=== PATIENT | female | born 1945 | race Caucasian/White ===

== ENCOUNTER 2019-07-11 01:41 | Observation (INO) | payer OTHER ==
--- NOTE | 2019-07-11 02:22 | PDOC ---
History of Present Illness - General Chief Complaint: Injury Stated Complaint: FALL Time Seen by Provider: 07/11/19 01:52 History Source: Patient Exam Limitations: No Limitations - History of Present Illness Initial Comments: 07/11/19 02:22 Lorna Crowe is a 74F with PMG NIDDM on Janumet and HTN on Losartan presenting with syncope and fall. Patient awoke at 4AM with a cramping sensation in her groin, stood up to relieve the pain, then felt weak, lost consciousness, and fell forwards. Patient later woke up when daughter heard a fall, had struck her head against a dresser. Patient does not remember event, last recollection is standing up. Earlier today denies any symptoms, says she felt well, had a good dinner. Denies fever/chills, N/V/C/D, dizziness, chest pain, SOB, palpitations, abd pain. Has pain on her forehead but denies pain to rest of body. Says she has tingling in her hands, but not down her arms or legs. Able to ambulate. Continues to have groin cramping in ED. No history of MD or CVA, no cardiac disease. Has been taking HTN meds daily for years without syncope. Past History - Past Medical History Allergies/Adverse Reactions: Allergies Allergy/AdvReac Type Severity Reaction Status Date / Time shellfish derived AdvReac Verified 07/11/19 02:14 Home Medications: Ambulatory Orders Glipizide [Glucotrol Xl] 5 mg PO DAILY 07/11/19 Losartan Potassium [Cozaar] 100 mg PO DAILY 07/11/19 Nebivolol HCl [Bystolic] 5 mg PO DAILY 07/11/19 Sitagliptin Phos/Metformin HCl [Janumet 50-1,000 mg Tablet] 1 each PO BID COPD: No - Psycho Social/Smoking Cessation Hx Smoking History: Never smoked Have you smoked in the past 12 months: No Information on smoking cessation initiated: No Hx Alcohol Use: No Drug/Substance Use Hx: No Review of Systems - Review of Systems Able to Perform ROS?: Yes Constitutional: No: Symptoms Reported HEENTM: Yes: Eye Pain Respiratory: No: Symptoms reported Cardiac (ROS): Yes: Lightheadedness ABD/GI: No: Symptoms Reported : No: Symptoms Reported Musculoskeletal: No: Symptoms Reported Integumentary: No: Symptoms Reported Neurological: Yes: Headache, Numbness, Tremors Endocrine: No: Symptoms Reported Hematologic/Lymphatic: No: Symptoms Reported All Other Systems: Reviewed and Negative *Physical Exam - Vital Signs Last Vital Signs Temp Pulse Resp BP Pulse Ox 98.3 F 97 H 18 176/81 H 100 07/11/19 02:00 07/11/19 02:00 07/11/19 02:00 07/11/19 02:00 07/11/19 02:00 - Physical Exam General Appearance: Yes: Nourished, Appropriately Dressed, Obese. No: Apparent Distress HEENT: positive: EOMI, ADRY, Normal Voice, Symmetrical, Pharynx Normal, Hearing Grossly Normal, Other (no facial bone deformities, vision intact, pupils reactive, no skull deformities). negative: Normal ENT Inspection (swelling and hematoma to R eye with L eyelid swollen over globe, no active bleeding or lacerations requiring repair), Scleral Icterus (R), Scleral Icterus (L), Pharyngeal Erythema, Tonsillar Exudate, Tonsillar Erythema Neck: positive: Trachea midline, Supple. negative: Tender, Lymphadenopathy (R) , Lymphadenopathy (L) Respiratory/Chest: positive: Lungs Clear, Normal Breath Sounds. negative: Chest Tender, Respiratory Distress, Accessory Muscle Use, Crackles, Rales, Rhonchi, Stridor, Wheezing Cardiovascular: positive: Regular Rhythm, Regular Rate Gastrointestinal/Abdominal: positive: Normal Bowel Sounds, Flat, Soft. negative : Tender Musculoskeletal: positive: Normal Inspection. negative: CVA Tenderness, Decreased Range of Motion, Vertebral Tenderness Extremity: positive: Normal Capillary Refill, Normal Inspection, Normal Range of Motion, Pelvis Stable, Other (no evidence of tenderness, bruising, or deformities to limgs). negative: Tender, Pedal Edema, Swelling, Calf Tenderness Neurologic: positive: sealer aircraft II-XII NML intact, Fully Oriented, Alert, Normal Mood/ Affect, Normal Response, Motor Strength 12/02 ED Treatment Course - LABORATORY CBC & Chemistry Diagram: 07/11/19 03:15 07/11/19 03:15 Medical Decision Making - Medical Decision Making 07/11/19 02:22 Lorna Crowe is a 74F with PMG NIDDM on Janumet and HTN on Losartan presenting with syncope and fall. Patient presents with syncope and fall but has no significant cardiac history. Likely vagal episode from standing too quickly, however will evaluate for cardiac causes including MD, arrhythmia, PE. Unlikely to be neurological, patient was not post-ictal, no hx seizures, no alcohol/drug use reported. Plan to admit for cardiac syncope for tele/obs. CMP CBC CP Mag/Phos BNP ECG CXR CT head/c-spine/facial bones 07/11/19 04:50 CT c-spine shows no fracture. CT head shows no acute IC pathology but has scalp edema CT facial bones show non-depressed nasal fracture that is old per patient/chart ECG shows NSR with HR 95, QRS 70, QTc 454, no TWI or ischemic changes. 07/11/19 06:[address] Longoria, admit to tele/obs for syncope evaluation, consult with Dr. Newman. Discharge - Discharge Information Problems reviewed: Yes Clinical Impression/Diagnosis: Syncope and collapse Condition: Stable - Admission Yes - Follow up/Referral - Patient Discharge Instructions - Post Discharge Activity
--- NOTE | 2019-07-11 02:28 | PDOC ---
Attending Attestation - Resident Resident Name: Jeronimo Pederson - ED Attending Attestation I have performed the following: I have examined & evaluated the patient, The case was reviewed & discussed with the resident, I agree w/resident's findings & plan - HPI HPI: 07/11/19 03:00 see resident hpi - Physicial Exam PE: 07/11/19 03:00 agree with resident exam - Medical Decision Making 07/11/19 03:00 74-year-old female status post syncopal episode with fall sustaining injury to the left periorbital area Plan for CT scans of the head facial bones and cervical spine as well as syncope evaluation Admission to medical service for further evaluation pending results
[2019-07-11] MEDS ORDERED: SODIUM CHLORIDE 0.9% 500 ML INFUS.BAG IV ONE (02:40)
[2019-07-11] MEDS ORDERED: ACETAMINOPHEN 1000 MG/100 ML VIAL (NON FORMULARY) IVPB ONE (02:40)
[2019-07-11] MEDS ORDERED: ACETAMINOPHEN INJECTION 100 ML IVPB ONE (03:05)
[2019-07-11 03:06] VITALS: BMI 41.9
[2019-07-11 03:39] LABS: BASO % 0.6 % (0-2.0); EOS % 0.7 % (0-4.5); HEMATOCRIT 34.7 % (32.4-45.2); HEMOGLOBIN 11.7 GM/dL (10.7-15.3); LYMPH % 9.3 % (8-40); MCH 30.1 pg (25.7-33.7); MCHC 33.7 g/dl (32.0-36.0); MEAN CELL VOLUME 89.4 fl (80-96); MEAN PLT VOLUME 7.9 fl (7.5-11.1); MONO % 5.6 % (3.8-10.2); NEUT % 83.8 % (42.8-82.8); PLATELET COUNT 252 K/MM3 (134-434); RBC 3.88 M/mm3 (3.60-5.2); RDW 13.1 % (11.6-15.6); WHITE BLOOD COUNT 11.5 K/mm3 (4.0-10.0)
[2019-07-11 04:08] LABS: ALBUMIN 3.6 g/dl (3.4-5.0); ALK PHOS 89 U/L (45-117); ANION GAP 9 MMOL/L (8-16); BILIRUBIN,TOTAL 0.5 mg/dL (0.2-1); BLOOD UREA NITROGEN 23.1 mg/dL (7-18); CALCIUM 9.3 mg/dL (8.5-10.1); CHLORIDE 109 mmol/L (98-107); CO2 23 mmol/L (21-32); CREATININE 1.1 mg/dL (0.55-1.3); GLUCOSE,RANDOM 173 mg/dL (74-106); MAGNESIUM 1.5 mg/dL (1.8-2.4); POTASSIUM 4.6 mmol/L (3.5-5.1); SGOT/AST 13 U/L (15-37); SGPT/ALT 22 U/L (13-61); SODIUM 142 mmol/L (136-145); TOT PROT 7.3 g/dl (6.4-8.2)
--- NOTE | 2019-07-11 10:25 | HP ---
DATE OF ADMISSION: 07/11/2019 This is a 74-year-old female well known to me. Early this morning, she had a cramping pain on her groin, stood up to relieve the pain, then got weak, and fell. There is question of loss of consciousness. She hit her left side of the face to the door. In the ER, she was awake, alert, and oriented, not in any other distress other than the pain from the fall. CAT scan of the head, C-spine, facial bones: No fracture. Patient is also diabetic and hypertensive on medications. No history of fever, [place]. FAMILY HISTORY: Nothing significant. Mother lived long. Father also lived long. Her recently . She has grown-up children. PHYSICAL EXAMINATION: Vital Signs: BP 140/50; pulse regular, 94; temperature 98. General: Awake, alert, oriented, not in any distress. Head: Trauma on the left side of periorbital area and the eye. Neck: Supple. No JVD. Lungs: Clear. Heart: S1, S2 normal. No S3 or S4. Abdomen: Soft. Neurologic: Examination grossly normal. Musculoskeletal: Range of motion of hip and other joints are normal. LABORATORY REPORTS: WBC 11, hemoglobin 11.7, hematocrit 34. Chemistry: Sodium 142, potassium 4.6, BUN 23, creatinine 1.1, blood sugar 173. B peptide 85. Troponin negative. Chest x-ray negative. X-ray of the C spine, facial bones, head CT are negative. IMPRESSION: Syncope, fall. Head injury ruled out. PLAN: Neurology consult by Dr. Goldberg. Cardiology consult by Dr. Chilel. Will follow. Kasia [id number]
--- NOTE | 2019-07-11 11:55 | CONS ---
DATE OF CONSULTATION: DATE OF DICTATION: 07/11/2019 CARDIOLOGY CONSULTATION REQUESTED BY: Lazaro Gresham MD CHIEF COMPLAINT: 1. History of severe pain involving the right groin. 2. Dizziness. 3. Loss of consciousness. HISTORY OF PRESENT ILLNESS: Patient is a 74-year-old white female with longstanding history of hypertension, noninsulin-dependent diabetes mellitus. Patient states that she was woken up in the early hours of the morning with severe pain involving the right groin described as "cramps." Patient got up to relieve the pain, went back to bed and the pain recurred. The 2nd time when she got up she became lightheaded and then found herself on the floor. She was complaining of pain involving the left forehead. Her daughter had heard her fall and by the time she got there patient was awake. There is no history of seizures, tongue biting or loss of sphincter control. There is no history of palpitations. There is no history of chest pain or discomfort either at rest or with exertion, no exertional dyspnea, paroxysmal nocturnal dyspnea or orthopnea. She denies having a heart murmur. PAST HISTORY: 1. As mentioned in the history of present illness. 2. History of osteoarthritis of the knees. SURGICAL HISTORY: 1. section x1. 2. Status post tonsillectomy. 3. History of removal of uterine fibroid without undergoing hysterectomy. 4. Status post colonoscopy. SOCIAL HISTORY: Patient is a . 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 Has 4 children, 2 sons and 2 daughters. The youngest son had acute lymphocytic leukemia at the age of 5 and has been cured. She stopped smoking 40 years ago and states she only smoked socially. No history of alcohol or drug use. FAMILY HISTORY: 1. Father had coronary artery disease and of a myocardial infarction at age 78. He was also diabetic. 2. Mother had hypertension and coronary artery disease and of a myocardial infarction at age 83. 3. She had 1 brother who was born mentally challenged and at age 21. ALLERGIES: SHELLFISH. MEDICATIONS: Prior to hospitalization she was on the following medications:1. Losartan 100 mg p.o. daily. 2. Bystolic 5 mg p.o. daily at night. 3. Glipizide 5 mg a.c. breakfast. 4. Janumet one p.o. b.i.d. a.c. REVIEW OF SYSTEMS: Constitutional: No history of chills, fever or night sweats. No history of unintentional weight loss.HEENT: History of left frontal headache and inability to open her left eye due to swelling of the eyelid. There is no diplopia or loss of vision reported. There is no history of epistaxis or hoarseness, no history of tinnitus or deafness. Respiratory: No history of cough, expectoration or hemoptysis. No history of tuberculosis. Cardiovascular: No history of chest pain or discomfort, no history of palpitations, no history of heart murmur. Gastrointestinal: No history of nausea, vomiting, melena or hematemesis. No history of abdominal pain or discomfort. No history of change in bowel habits. Neurological: See history of present illness. Endocrine: See history of present illness. No history of polyuria or polydipsia. Denies intolerance to cold or warm weather. Genitourinary: No history of dysuria. Hematological: History of ecchymosis, contusion and swelling of the left eyelid related to a hematoma (traumatic). Miscellaneous: History of paresthesias involving both hands (chronic). LABORATORY DATA: ECG, July 11, 2019, 4:57 a.m.: Sinus rhythm, suboptimal tracing, baseline artifacts are recorded. There are Q waves in II, III, aVF, the possibility of an inferior wall myocardial infarction of indeterminate age. RSR prime in V1 consistent with incomplete right bundle branch block. Nonspecific ST and T-wave abnormalities involving the anterior leads. There is no previous ECG available for comparison. CBC: WBC 11,500. Hemoglobin 11.7 g/dL. Normal cell indices. Platelet count 252,000. Differential: Elevated neutrophils 83.8%. The remainder of differential is normal. Chemistry: Sodium 142, potassium 4.6, chloride 109, CO2 is 23 mMol/L. BUN 23.1 mg/dL. Creatinine 1.1 mg/dL. Random glucose was 173 mg/dL. Calcium 9.3 mg/dL. Magnesium was 1.5. Phosphorus 3.0. Total bilirubin 0.5. AST 13, ALT 22 units/L. Alkaline phosphatase 89 units/L. CK 158. Troponin was less than 0.02. BNP was 85 pg/mL. X-ray, chest. Impression: No evidence of active pulmonary disease. CT of the head without contrast. Impression: 1. No evidence of acute intracranial hemorrhage, edema, midline shift, mass effect or skull fracture. 2. No CT evidence of acute. 3. Left preseptal/septal soft tissue swelling. IMPRESSION: 1. Clinical presentation consistent with syncope. Etiology: a. Vasovagal. b. Arrhythmias need exclusion. 2. Hypomagnesemia. 3. Hypertension, currently normotensive. 4. Noninsulin-dependent diabetes mellitus. 5. Exogenous obesity. 6. Contusion involving the left forehead and left upper eyelid associated with hematoma. 7. Inferior wall myocardial infarction of indeterminate age cannot be excluded. RECOMMENDATIONS: 1. Followup ECG and enzymes. 2. Check blood pressure supine and standing. 3. Echocardiogram for evaluation of LV wall motion. 4. Correction of hypomagnesemia. 5. Would suggest followup CT scan prior to discharge. 6. Lipid profile and consider statins in the presence of diabetes mellitus. Thank you for your referral. Yours sincerely, Kasia [id number] cc: Chris Chilel MD
[2019-07-11] MEDS ORDERED: ACETAMINOPHEN 325 MG TABLET (FP) ONE (14:37)
--- NOTE | 2019-07-11 14:39 | EKG ---
Test Reason : Blood Pressure : / mmHG Vent. Rate : 095 BPM Atrial Rate : 095 BPM P-R Int : 202 ms QRS Dur : 070 ms QT Int : 362 ms P-R-T Axes : 105 028 008 degrees QTc Int : 454 ms POOR DATA QUALITY, INTERPRETATION MAY BE ADVERSELY AFFECTED NORMAL SINUS RHYTHM POSSIBLE INFERIOR INFARCT (CITED ON OR BEFORE 03-FEB-2003) ABNORMAL ECG WHEN COMPARED WITH ECG OF 16-JAN-2009 13:26, NO SIGNIFICANT CHANGE WAS FOUND Confirmed by MARCIAL COTTON MD ([id number]) on 07/11/2019 2:39:20 PM Referred By: Confirmed By:MARCIAL COTTON MD
[2019-07-11] MEDS: ACETAMINOPHEN 325 MG TABLET (FP) PO ONE (14:43)
[2019-07-11] MEDS ORDERED: PNEUMOC 13-VAL CONJ-DIP CRM/PF 0.5 ML DISP.SYRIN IM ONE (19:06)
[2019-07-12 06:55] VITALS: TEMP 98.6
[2019-07-12] MEDS ORDERED: ACETAMINOPHEN 325 MG TABLET (FP) ONE (09:51)
--- NOTE | 2019-07-12 09:57 | DS ---
Physical Examination Vital Signs: Vital Signs Temperature 98.6 F 07/12/19 06:00 Pulse Rate 76 07/12/19 06:00 Respiratory Rate 20 07/12/19 06:00 Blood Pressure 137/86 07/12/19 06:00 O2 Sat by Pulse Oximetry (%) 98 07/11/19 21:00 Findings/Remarks: Admitted after sycope and fall Doing OK Cardiology consult of Dr sheik carolina Constitutional: Yes: No Distress Eyes: Yes: WNL HENT: Yes: WNL Neck: Yes: WNL Cardiovascular: Yes: WNL Respiratory: Yes: WNL Gastrointestinal: Yes: Normal Bowel Sounds Renal/: Yes: WNL Edema: No Wound/Incision: Yes: Other (Hemtoma left eye area OK) Neurological: Yes: Alert Labs: CBC, BMP 07/11/19 03:15 07/11/19 03:15 Discharge Summary Problems reviewed: Yes Reason For Visit: SYNCOPE AND COLLAPSE Current Active Problems Syncope and collapse (Acute) Condition: Stable - Instructions Referrals: Lazaro Gresham MD [Primary Care Provider] - - Home Medications Comprehensive Discharge Medication List: Ambulatory Orders Glipizide [Glucotrol Xl] 5 mg PO DAILY 07/11/19 Losartan Potassium [Cozaar] 100 mg PO DAILY 07/11/19 Nebivolol HCl [Bystolic] 5 mg PO DAILY 07/11/19 Sitagliptin Phos/Metformin HCl [Janumet 50-1,000 mg Tablet] 1 each PO BID
[2019-07-12] MEDS ORDERED: MAGNESIUM CL 64 MG TABLET.SA PO SCH (10:00)
[2019-07-12] MEDS ORDERED: PT OWN MED DRAWER 7, Y5N ONE (10:51)
--- NOTE | 2019-07-12 11:10 | CON.NEURO ---
Consult Consult Specialty:: carla Referred by:: reji - History of Present Illness History of Present Illness: 74-year-old right handed female patient with multiple medical problems including history of osteoarthritis, coronary artery disease, diabetes who was at the usual of health status until yesterday unfortunately she fell at home questionable circumstances of exactly what happened patients daughter did not see the actual full but she was able to attend to her mother right away. No reports of any seizure like activity in a report of any chest pain patient came into the emergency room at [facility]. Cat head view no evidence of acute [employer] pathology. Patient is currently not an aspirin. Patient was found hemodynamically stable. Patient was noted with low magnesium level. - History Source History Provided By: Patient, Family Member, Medical Record - Alcohol/Substance Use Hx Alcohol Use: No - Smoking History Smoking history: Never smoked Have you smoked in the past 12 months: No Home Medications - Allergies Allergies/Adverse Reactions: Allergies Allergy/AdvReac Type Severity Reaction Status Date / Time shellfish derived AdvReac Verified 07/11/19 02:14 - Home Medications Home Medications: Ambulatory Orders Glipizide [Glucotrol Xl] 5 mg PO DAILY 07/11/19 Losartan Potassium [Cozaar] 100 mg PO DAILY 07/11/19 Nebivolol HCl [Bystolic] 5 mg PO DAILY 07/11/19 Sitagliptin Phos/Metformin HCl [Janumet 50-1,000 mg Tablet] 1 each PO BID Family Medical History Family History: Unremarkable Family Hx Cancer: Grandmother (maternal) Family Hx Cardiac Disorders: Grandmother (maternal) Review of Systems - Review of Systems Constitutional: reports: No Symptoms Eyes: reports: No Symptoms Musculoskeletal: reports: Back Pain, Joint Pain Neurological: reports: Headache Physical Exam-Neuro Vital Signs: Vital Signs Temperature 98.6 F 07/12/19 06:00 Pulse Rate 76 07/12/19 06:00 Respiratory Rate 20 07/12/19 06:00 Blood Pressure 137/86 07/12/19 06:00 O2 Sat by Pulse Oximetry (%) 98 07/11/19 21:00 Constitutional: Yes: Well Nourished Neck: Yes: WNL Labs: CBC, BMP 07/11/19 03:15 07/11/19 03:15 - Neuro Exam Level Of Consciousness: Yes: Oriented to Person, Oriented to Place Eyes: Yes: PERRLA Speech: WNL Dominant Hand: Right Cranial Nerves II-XII Intact: Yes Gag: Present DTR's: 0 Left Tricep, 1+ Left Bicep, 1+ Right Bicep, 1+ Right Tricep, 1+ Left Brachioradialis Babinski: Absent Response to light touch: Abnormal Motor Strength: 3/5: Left Arm, Right Arm, Left Leg, Right Leg Gait: Deferred Imaging - Results Cat Scan: Image Reviewed Problem List - Problems (1) Syncope and collapse Assessment/Plan: 74-year-old woman with history of diabetes status post questionable [place] syncope nation with evidence of mild neuropathy with no evidence of acute [employer] pathology. Syncope associated be associated with TIA c duplex orthostatic checks baby asa lipitor 20 fall precautions many thanks Shelly Goldberg Code(s): R55 - SYNCOPE AND COLLAPSE
[2019-07-12] MEDS: ACETAMINOPHEN 325 MG TABLET (FP) PO ONE (11:11)
[2019-07-12 14:08] VITALS: BP 139/86; PULSE 72
== END 2019-07-12 13:30 | disposition home or self-care (01) ==
LOC: JER 01:41 → JERBED 05:00 → J4W 16:52
PROVIDERS: ADMIT Internal Medicine; ATTEND Internal Medicine
PROC: 3E033NZ Introduction of Analgesics, Hypnotics, Sedatives into Peripheral Vein, Percutaneous Approach (ICD-10-PCS; principal; 2019-07-11)
PROC: 3E0337Z Introduction of Electrolytic and Water Balance Substance into Peripheral Vein, Percutaneous Approach (ICD-10-PCS; 2019-07-11)
PROC: 3E0234Z Introduction of Serum, Toxoid and Vaccine into Muscle, Percutaneous Approach (ICD-10-PCS; 2019-07-11)
DX: R55 Syncope and collapse (principal); S00.83XA Contusion of other part of head, initial encounter; S00.12XA Contusion of left eyelid and periocular area, initial encounter; E11.9 Type 2 diabetes mellitus without complications; I10 Essential (primary) hypertension; E83.42 Hypomagnesemia; E66.9 Obesity, unspecified; Z68.41 Body mass index [BMI] 40.0-44.9, adult; Z79.84 Long term (current) use of oral hypoglycemic drugs; Z91.013 Allergy to seafood; W18.39XA Other fall on same level, initial encounter; Y93.89 Activity, other specified; Y92.89 Other specified places as the place of occurrence of the external cause
CPT/HCPCS: 36415; 70450-TC; 70486-TC; 71045-TC-FY; 72125-TC; 80053; 82550; 82553; 83735; 83880; 84100; 84484; 85025; 90471; 90670; 93005; 93010; 96374; 99285-25; G0378; J0131

== ENCOUNTER 2020-07-08 09:28 | Inpatient (IN) | payer OTHER, MEDICARE ==
[2020-07-08] MEDS ORDERED: ACETAMINOPHEN 1000 MG/100 ML VIAL (NON FORMULARY) IVPB ONE ×2 (09:51→15:23)
[2020-07-08] MEDS ORDERED: ACETAMINOPHEN INJECTION 100 ML IVPB ONE ×2 (10:09→15:33)
[2020-07-08 10:22] LABS: BASO % 0.4 % (0-2.0); EOS % 0.7 % (0-4.5); HEMATOCRIT 32.7 % (32.4-45.2); HEMOGLOBIN 10.9 GM/dL (10.7-15.3); LYMPH % 8.5 % (8-40); MCH 30.4 pg (25.7-33.7); MCHC 33.3 g/dl (32.0-36.0); MEAN CELL VOLUME 91.2 fl (80-96); MEAN PLT VOLUME 7.7 fl (7.5-11.1); MONO % 4.9 % (3.8-10.2); NEUT % 85.5 % (42.8-82.8); PLATELET COUNT 247 K/MM3 (134-434); RBC 3.59 M/mm3 (3.60-5.2); RDW 13.2 % (11.6-15.6); WHITE BLOOD COUNT 10.9 K/mm3 (4.0-10.0)
[2020-07-08 10:28] LABS: PROTHROMBIN TIME (PATIENT) 12.3 SEC (9.7-13.0)
[2020-07-08 10:31] LABS: ACTIVATED PTT 23.9 SECONDS (25.2-36.5)
[2020-07-08 10:43] LABS: POTASSIUM 4.8 mmol/L (3.5-5.1)
[2020-07-08 10:45] LABS: ALBUMIN 3.4 g/dl (3.4-5.0); CALCIUM 8.8 mg/dL (8.5-10.1)
[2020-07-08 10:46] LABS: BLOOD UREA NITROGEN 21.6 mg/dL (7-18)
[2020-07-08 10:49] LABS: CREATININE 1.2 mg/dL (0.55-1.3)
[2020-07-08 10:50] LABS: BILIRUBIN,TOTAL 0.6 mg/dL (0.2-1); TOT PROT 6.7 g/dl (6.4-8.2)
[2020-07-08] MEDS ORDERED: morphine SULFATE 4 MG/ML VIAL ONE (15:01)
[2020-07-08] MEDS: morphine CARPU-JECT 4 MG/1 ML DISP.SYRIN IVPUSH ONE ×2 (15:04→15:09)
[2020-07-08] MEDS ORDERED: MEPERIDINE HCL 25 MG/ML VIAL IM PRN (18:17)
[2020-07-08 21:02] VITALS: BMI 37.4
[2020-07-09] MEDS ORDERED: ACETAMINOPHEN 1000 MG/100 ML VIAL (NON FORMULARY) IVPB ONE (00:01)
[2020-07-09] MEDS ORDERED: amLODIPine BESYLATE 5 MG TABLET (FP) PO ONE (09:34)
[2020-07-09] MEDS ORDERED: PROPOFOL 20 ML ONE ×2 (11:18→12:28)
[2020-07-09] MEDS ORDERED: MIDAZOLAM HCL 2 MG/2 ML SINGLE DOSE VIAL ONE (11:19)
[2020-07-09] MEDS ORDERED: ACETAMINOPHEN 1000 MG/100 ML VIAL (NON FORMULARY) IVPB PRN ×2 (11:22→13:33)
[2020-07-09] MEDS ORDERED: LACTATED RINGERS SOLUTION 1,000 ML IV SCH (11:30)
[2020-07-09] MEDS ORDERED: ceFAZolin SODIUM 1 GM VIAL IVPB ONE (11:55)
[2020-07-09] MEDS ORDERED: ONDANSETRON 4 MG/2 ML VIAL IVPUSH PRN (13:20)
[2020-07-09] MEDS ORDERED: MEPERIDINE HCL 25 MG/ML VIAL IM PRN (13:33)
[2020-07-09] MEDS ORDERED: MEPERIDINE HCL 25 MG/ML VIAL ONE (13:41)
[2020-07-09] MEDS ORDERED: MEPERIDINE HCL 25 MG/ML VIAL IVPUSH ONE ×2 (13:45→15:11)
[2020-07-09] MEDS: oxyCODONE HCL 5 MG TABLET PO PRN ×2 (17:38→22:06)
[2020-07-09] MEDS: LACTATED RINGERS SOLUTION 1,000 ML IV SCH (17:46)
[2020-07-09] MEDS: CEFAZOLIN 2 GM/D5W 2 GM/50 ML ML IVPB SCH (18:30)
[2020-07-09] MEDS ORDERED: CEFAZOLIN 2 GM/D5W 2 GM/50 ML ML IVPB SCH (19:00)
[2020-07-10] MEDS: LACTATED RINGERS SOLUTION 1,000 ML IV SCH ×2 (00:09→15:39)
[2020-07-10] MEDS: CEFAZOLIN 2 GM/D5W 2 GM/50 ML ML IVPB SCH ×2 (03:24→11:25)
[2020-07-10 09:37] LABS: HEMATOCRIT 29.8 % (32.4-45.2); HEMOGLOBIN 9.9 GM/dL (10.7-15.3); MCH 30.2 pg (25.7-33.7); MCHC 33.2 g/dl (32.0-36.0); MEAN PLT VOLUME 7.8 fl (7.5-11.1); PLATELET COUNT 200 K/MM3 (134-434); RBC 3.27 M/mm3 (3.60-5.2); RDW 13.2 % (11.6-15.6); WHITE BLOOD COUNT 10.1 K/mm3 (4.0-10.0)
[2020-07-10] MEDS: ENOXAPARIN NA (PORCINE) 40 MG/0.4 ML DISP.SYRIN SQ SCH (09:37)
[2020-07-10] MEDS ORDERED: ENOXAPARIN NA (PORCINE) 40 MG/0.4 ML DISP.SYRIN SQ SCH (10:00)
[2020-07-10 10:07] LABS: BLOOD UREA NITROGEN 15.4 mg/dL (7-18)
[2020-07-10 10:10] LABS: CREATININE 1.1 mg/dL (0.55-1.3)
[2020-07-10] MEDS: metFORMIN HCL 500 MG TABLET (FP) PO SCH (17:43)
[2020-07-11] MEDS ORDERED: PT OWN MED DRAWER 7, Y5N ONE (06:58)
[2020-07-11] MEDS: metFORMIN HCL 500 MG TABLET (FP) PO SCH (07:06)
[2020-07-11 09:14] LABS: BASO % 0.7 % (0-2.0); HEMATOCRIT 27.4 % (32.4-45.2); HEMOGLOBIN 8.8 GM/dL (10.7-15.3); LYMPH % 14.4 % (8-40); MCH 29.2 pg (25.7-33.7); MCHC 32.1 g/dl (32.0-36.0); MEAN CELL VOLUME 90.8 fl (80-96); MONO % 8.7 % (3.8-10.2); NEUT % 74.2 % (42.8-82.8); PLATELET COUNT 198 K/MM3 (134-434); RBC 3.02 M/mm3 (3.60-5.2); RDW 13.3 % (11.6-15.6); WHITE BLOOD COUNT 8.7 K/mm3 (4.0-10.0)
[2020-07-11 09:32] LABS: POTASSIUM 4.4 mmol/L (3.5-5.1)
[2020-07-11 09:34] LABS: CALCIUM 8.6 mg/dL (8.5-10.1)
[2020-07-11 09:35] LABS: BLOOD UREA NITROGEN 19.3 mg/dL (7-18)
[2020-07-11] MEDS: RAMIPRIL 5 MG CAPSULE PO SCH (09:53)
[2020-07-11] MEDS: ENOXAPARIN NA (PORCINE) 40 MG/0.4 ML DISP.SYRIN SQ SCH (09:58)
[2020-07-11] MEDS ORDERED: ACETAMINOPHEN 1000 MG/100 ML VIAL (NON FORMULARY) IVPB ONE (21:07)
[2020-07-12] MEDS: LACTATED RINGERS SOLUTION 1,000 ML IV SCH ×3 (00:06→22:22)
[2020-07-12] MEDS: INSULIN SLIDING SCALE (NOVOLOG) 1 VIAL SQ SCH ×4 (06:19→17:04)
[2020-07-12] MEDS ORDERED: INSULIN (NOVOLOG) ASPART 100 UNITS/ML 10ML VIAL ONE ×2 (06:59→11:44)
[2020-07-12] MEDS: ENOXAPARIN NA (PORCINE) 40 MG/0.4 ML DISP.SYRIN SQ SCH (10:54)
[2020-07-12] MEDS: RAMIPRIL 5 MG CAPSULE PO SCH (10:55)
[2020-07-12] MEDS ORDERED: ACETAMINOPHEN 1000 MG/100 ML VIAL (NON FORMULARY) IVPB ONE (21:30)
[2020-07-12] MEDS ORDERED: INSULIN (LEVEMIR) 100 UNITS/ML UNITS SQ SCH (22:00)
[2020-07-13] MEDS: ENOXAPARIN NA (PORCINE) 40 MG/0.4 ML DISP.SYRIN SQ SCH (10:18)
[2020-07-13] MEDS: RAMIPRIL 5 MG CAPSULE PO SCH (10:19)
[2020-07-13] MEDS: INSULIN SLIDING SCALE (NOVOLOG) 1 VIAL SQ SCH ×2 (12:34→17:02)
[2020-07-13] MEDS: LACTATED RINGERS SOLUTION 1,000 ML IV SCH (14:01)
[2020-07-13 14:40] VITALS: BP 122/68; PULSE 95; TEMP 98.2
[2020-07-13] MEDS ORDERED: INSULIN (NOVOLOG) ASPART 100 UNITS/ML 10ML VIAL ONE (17:00)
== END 2020-07-13 17:00 | DRG 482 ==
LOC: JER 09:28 → JERBED 11:06 → J6S 20:35
PROVIDERS: ADMIT Internal Medicine; ATTEND Internal Medicine
PROC: 0QS606Z Reposition Right Upper Femur with Intramedullary Internal Fixation Device, Open Approach (ICD-10-PCS; principal; 2020-07-09 12:00)
DX: S72.141A Displaced intertrochanteric fracture of right femur, initial encounter for closed fracture (principal); I10 Essential (primary) hypertension; E11.9 Type 2 diabetes mellitus without complications; E78.5 Hyperlipidemia, unspecified; D64.9 Anemia, unspecified; W01.0XXA Fall on same level from slipping, tripping and stumbling without subsequent striking against object, initial encounter; Y92.098 Other place in other non-institutional residence as the place of occurrence of the external cause
CPT/HCPCS: 36415; 70450-TC; 71046-TC-FY; 72125-TC; 73523-TC-FY; 73552-TC-RT-FY; 80048; 80053; 82962; 85025; 85027; 85610; 85730; 86850; 86900; 86901; 93005; 93010; 94760; 97116-GP; 97162-GP; 99285-25; C9803; J0131; U0003

== ENCOUNTER 2023-03-20 04:51 | Day surgery (SDC) | payer OTHER, MEDICARE ==
[2023-03-14 13:52] VITALS: BMI 35.9
[2023-03-20 08:57] VITALS: TEMP 97.9
[2023-03-20 09:43] VITALS: RESP 16
[2023-03-20 09:46] VITALS: BP 139/73; PULSE 65
== END 2023-03-20 09:52 | disposition home or self-care (01) ==
LOC: JASU-ENDO 04:51
PROVIDERS: ATTEND Internal Medicine Gastroenterology
PROC: 0DB98ZX Excision of Duodenum, Via Natural or Artificial Opening Endoscopic, Diagnostic (ICD-10-PCS; 2023-03-20)
PROC: 0DB78ZX Excision of Stomach, Pylorus, Via Natural or Artificial Opening Endoscopic, Diagnostic (ICD-10-PCS; 2023-03-20)
PROC: 0DB68ZX Excision of Stomach, Via Natural or Artificial Opening Endoscopic, Diagnostic (ICD-10-PCS; 2023-03-20)
PROC: 0DBK8ZX Excision of Ascending Colon, Via Natural or Artificial Opening Endoscopic, Diagnostic (ICD-10-PCS; 2023-03-20)
PROC: 0DBM8ZX Excision of Descending Colon, Via Natural or Artificial Opening Endoscopic, Diagnostic (ICD-10-PCS; 2023-03-20)
PROC: 0DBM4ZX Excision of Descending Colon, Percutaneous Endoscopic Approach, Diagnostic (ICD-10-PCS; 2023-03-20)
PROC: 0DBN8ZX Excision of Sigmoid Colon, Via Natural or Artificial Opening Endoscopic, Diagnostic (ICD-10-PCS; principal; 2023-03-20 08:00)
DX: K63.5 Polyp of colon (principal); K57.30 Diverticulosis of large intestine without perforation or abscess without bleeding; K29.50 Unspecified chronic gastritis without bleeding; B96.81 Helicobacter pylori [H. pylori] as the cause of diseases classified elsewhere; D64.9 Anemia, unspecified; I10 Essential (primary) hypertension; E11.9 Type 2 diabetes mellitus without complications; Z79.84 Long term (current) use of oral hypoglycemic drugs
CPT/HCPCS: 82962